=== PATIENT | male | born 1970 | race Caucasian/White ===

== ENCOUNTER 2017-12-18 16:14 | Emergency (ER) | payer OTHER ==
[2017-12-18] MEDS ORDERED: Pantoprazole 40 MG VIAL ONE (16:50)
[2017-12-18] MEDS ORDERED: Promethazine HCl 25 MG/ML VIAL ONE (16:50)
[2017-12-18 17:02] LABS: #Basophils 0.1 thou/uL (0.0-0.2); #Eosinphils 0.1 thou/uL (0.0-0.7); #Lymphocytes 1.5 thou/uL (1.20-3.40); #Monocytes 0.5 thou/uL (0.11-0.59); #Neutrophils 11.5 thou/uL (1.40-6.50); %Basophils 0.7 % (0.0-1.0); %Eosinophils 0.5 % (0.0-10.0); %Monocytes 3.7 % (0.0-10.0); %Neutrophils 84.1 % (42.0-75.0); Hemoglobin 16.3 g/dL (14.0-18.0); Mean Corpuscular HGB CONC 36.4 g/dL (32.0-36.0); Mean Corpuscular Hemoglobin 29.3 pg (27.0-31.0); Mean Corpuscular Volume 80.5 fL (78.0-98.0); Mean Platelet Volume 6.1 fL (7.4-10.4); Platelet Count 261 thou/uL (130-400); RBC Distribution Width 10.4 % (11.5-14.5); Red Blood Cell (RBC) Count 5.57 mill/uL (4.70-6.10); White Blood Cell (WBC) Count 13.7 thou/uL (4.8-10.8)
[2017-12-18 17:08] LABS: CO2 Tension (PvCO2) 47.7 mmHg (41.0-51.0); O2 Tension (PvO2) 33.7 mmHg (35.0-45.0); pH (Venous) 7.353 (7.35-7.45)
[2017-12-18 17:09] LABS: Base Excess-Venous 0.2 mmol/L (0 (+/- 2.5)); Bicarbonate (HCO3v) 26.5 mmol/L (1.0-85.0); Calcium, Ionized 1.07 mmol/L (1.12-1.32); Hemoglobin - Calc 16.9 g/dL (12.0-18.0); Potassium 3.7 mmol/L (3.4-4.7); vO2 Saturation-calc 61.2 % (94-98)
[2017-12-18 17:21] LABS: ALT (SGPT) 24 U/L (8-55); AST (SGOT) 17 U/L (5-34); Albumin 4.5 g/dL (3.5-5.0); Alkaline Phosphatase 61 U/L (40-150); Anion Gap 19 mmol/L (10-20); BUN (Urea Nitrogen) 12 mg/dL (8.9-20.6); Bilirubin, Total 0.7 mg/dL (0.2-1.2); Calc. Creatinine Clearance 0 mL/min (70-130); Calcium 10.1 mg/dL (7.8-10.44); Carbon Dioxide 25 mmol/L (22-29); Chloride 101 mmol/L (98-107); Estimated GFR-MDRD 87; Globulin 2.8 g/dL (2.4-3.5); Glucose 246 mg/dL (70-105); Lipase 26 U/L (8-78); Potassium 3.9 mmol/L (3.5-5.1); Protein, Total 7.3 g/dL (6.0-8.3); Sodium 141 mmol/L (136-145)
[2017-12-18] MEDS ORDERED: diphenhydrAMINE 50 MG/ML VIAL ONE (18:02)
[2017-12-18] MEDS ORDERED: Metoclopramide HCl 10 MG/2 ML VIAL ONE (18:02)
[2017-12-18 18:46] LABS: Clarity Clear (Clear)
[2017-12-18 18:48] LABS: Bilirubin Negative (Negative); Blood, Urine Negative (Negative); Glucose, Urine (Dipstick) 500 mg/dL (Negative); Leukocyte Negative (Negative); Nitrite Negative (Negative); Protein, Urine (Dipstick) Negative (Neg-Trace); Urobilinogen 0.2 mg/dL (0.2-1.0); pH, Urine 5.5 (5.0-9.0)
--- NOTE | 2017-12-18 18:59 | CT ---
CT ABDOMEN AND PELVIS WITH CONTRAST 12/18/[address] of the abdomen and pelvis was performed for evaluation of nausea and vomiting. Axial slices were acquired after giving IV contrast. Coronal and sagittal reconstructions were done afterwards. The lung bases are clear. There is a small hiatal hernia. There might be some slight thickening of th e distal esophagus, but this is difficult to be sure of. The stomach itself did not appear distended or have abnormally thick harrison. The liver and spleen were unremarkable. The gallbladder is rather lar ge, measuring 9.1 cm in length, but no definite calcifications were seen within it. The adrenal gland s appeared normal as do the kidneys, but there is a tiny nonobstructing calculus in the right kidney. No ureteral calculi were seen. The abdominal aorta was unremarkable. The bowel showed no sign of distention or bowel wall thickening. No inflammatory changes were seen ar ound bowel. The appendix appears normal. There is no free air or free fluid visible. CT of the pelvis showed no pelvic masses, fluid collections, or inflammatory changes. IMPRESSION: 1. No specific gut abnormality seen. 2. Small hiatal hernia. 3. Gallbladder is somewhat large but no stones were appreciated. 4. Tiny nonobstructing right renal calculus. POS: HOME
[2017-12-18] MEDS ORDERED: Morphine 4 MG/ML Carpuject ONE (19:12)
== END 2017-12-18 20:13 | disposition home or self-care (01) ==
LOC: BURERS 16:14
DX: E11.9 Type 2 diabetes mellitus without complications (principal); R11.2 Nausea with vomiting, unspecified; I10 Essential (primary) hypertension; Z79.84 Long term (current) use of oral hypoglycemic drugs; Z79.899 Other long term (current) drug therapy
CPT/HCPCS: 36416; 74177; 80053; 81003; 82330; 82803; 83690; 85025; 93005; 96361; 96365; 96375; C9113; J1200; J2270; J2550; J2765

== ENCOUNTER 2017-12-25 12:12 | Emergency (ER) | payer OTHER ==
[2017-12-25] MEDS ORDERED: Promethazine HCl 25 MG/ML VIAL ONE (12:40)
[2017-12-25] MEDS ORDERED: Famotidine In NaCl 20 mg/50 ml Premix Bag ONE (12:40)
[2017-12-25 12:54] LABS: #Monocytes 0.4 thou/uL (0.11-0.59); #Neutrophils 5.4 thou/uL (1.40-6.50); %Basophils 0.5 % (0.0-1.0); %Eosinophils 0.2 % (0.0-10.0); %Lymphocytes 14.5 % (21.0-51.0); %Monocytes 5.7 % (0.0-10.0); Hemoglobin 17.9 g/dL (14.0-18.0); Mean Corpuscular HGB CONC 34.4 g/dL (32.0-36.0); Mean Corpuscular Hemoglobin 30.3 pg (27.0-31.0); Mean Corpuscular Volume 88.3 fL (78.0-98.0); Mean Platelet Volume 7.9 fL (7.4-10.4); Platelet Count 265 thou/uL (130-400); RBC Distribution Width 10.8 % (11.5-14.5); Red Blood Cell (RBC) Count 5.89 mill/uL (4.70-6.10); White Blood Cell (WBC) Count 6.8 thou/uL (4.8-10.8)
[2017-12-25 13:07] LABS: pH (Venous) 7.377 (7.35-7.45)
[2017-12-25 13:08] LABS: Base Excess-Venous 0.2 mmol/L (0 (+/- 2.5)); Bicarbonate (HCO3v) 25.9 mmol/L (1.0-85.0); CO2 Tension (PvCO2) 44.1 mmHg (41.0-51.0); O2 Tension (PvO2) 30.9 mmHg (35.0-45.0); vO2 Saturation-calc 57.5 % (94-98)
[2017-12-25 13:09] LABS: ALT (SGPT) 21 U/L (8-55); AST (SGOT) 13 U/L (5-34); Albumin 4.5 g/dL (3.5-5.0); Alkaline Phosphatase 68 U/L (40-150); Anion Gap 19 mmol/L (10-20); BUN (Urea Nitrogen) 13 mg/dL (8.9-20.6); Calc. Creatinine Clearance 0 mL/min (70-130); Calcium 9.9 mg/dL (7.8-10.44); Carbon Dioxide 27 mmol/L (22-29); Chloride 95 mmol/L (98-107); Estimated GFR-MDRD Greater than 90; Globulin 2.9 g/dL (2.4-3.5); Glucose 226 mg/dL (70-105); Hemoglobin - Calc 18.9 g/dL (12.0-18.0); Lipase 23 U/L (8-78); Potassium 3.6 mmol/L (3.5-5.1); Protein, Total 7.4 g/dL (6.0-8.3); Sodium 137 mmol/L (136-145)
[2017-12-25 13:10] LABS: CKMB 0.8 ng/mL (0-6.6); Troponin I Less than 0.010 ng/mL (< 0.028)
[2017-12-25] MEDS ORDERED: Ondansetron HCl/PF 4 MG/2 ML Vial ONE ×2 (13:21→15:39)
[2017-12-25 14:36] LABS: Bilirubin Negative (Negative); Blood, Urine Negative (Negative); Clarity Clear (Clear); Glucose, Urine (Dipstick) 500 mg/dL (Negative); Leukocyte Negative (Negative); Nitrite Negative (Negative); Protein, Urine (Dipstick) Negative (Neg-Trace); Urobilinogen 0.2 mg/dL (0.2-1.0); pH, Urine 5.5 (5.0-9.0)
== END 2017-12-25 19:05 | disposition home or self-care (01) ==
LOC: BURERS 12:12
DX: E72.51 Non-ketotic hyperglycinemia (principal); I10 Essential (primary) hypertension; E11.9 Type 2 diabetes mellitus without complications; Z79.899 Other long term (current) drug therapy; Z79.4 Long term (current) use of insulin
CPT/HCPCS: 80053; 81003; 82330; 82553; 82803; 83605; 83690; 84484; 85025; 93005; 94760; 96361; 96365; 96375; 96376; J2405; J2550

== ENCOUNTER 2018-02-02 09:42 | Emergency (ER) | payer OTHER ==
[2018-02-02] MEDS ORDERED: Ondansetron HCl/PF 4 MG/2 ML Vial ONE (10:38)
[2018-02-02 10:41] LABS: #Basophils 0.1 thou/uL (0.0-0.2); #Eosinphils 0.1 thou/uL (0.0-0.7); #Lymphocytes 1.4 thou/uL (1.20-3.40); #Monocytes 0.8 thou/uL (0.11-0.59); #Neutrophils 6.2 thou/uL (1.40-6.50); %Basophils 1.4 % (0.0-1.0); %Eosinophils 0.9 % (0.0-10.0); %Lymphocytes 16.5 % (21.0-51.0); %Monocytes 9.1 % (0.0-10.0); %Neutrophils 72.1 % (42.0-75.0); Hemoglobin 16.7 g/dL (14.0-18.0); Mean Corpuscular HGB CONC 34.1 g/dL (32.0-36.0); Mean Corpuscular Hemoglobin 29.6 pg (27.0-31.0); Mean Corpuscular Volume 86.6 fL (78.0-98.0); Mean Platelet Volume 7.1 fL (7.4-10.4); Platelet Count 465 thou/uL (130-400); RBC Distribution Width 11.7 % (11.5-14.5); Red Blood Cell (RBC) Count 5.66 mill/uL (4.70-6.10); White Blood Cell (WBC) Count 8.7 thou/uL (4.8-10.8)
[2018-02-02 10:54] LABS: ALT (SGPT) 16 U/L (8-55); AST (SGOT) 9 U/L (5-34); Albumin 4.3 g/dL (3.5-5.0); Alkaline Phosphatase 88 U/L (40-150); Anion Gap 16 mmol/L (10-20); BUN (Urea Nitrogen) 20 mg/dL (8.9-20.6); Bilirubin, Total 1.3 mg/dL (0.2-1.2); Calc. Creatinine Clearance 0 mL/min (70-130); Calcium 9.8 mg/dL (7.8-10.44); Carbon Dioxide 25 mmol/L (22-29); Chloride 94 mmol/L (98-107); Estimated GFR-MDRD 78; Globulin 2.9 g/dL (2.4-3.5); Glucose 232 mg/dL (70-105); Lipase 31 U/L (8-78); Potassium 3.8 mmol/L (3.5-5.1); Protein, Total 7.2 g/dL (6.0-8.3); Sodium 131 mmol/L (136-145)
[2018-02-02 10:55] LABS: CKMB 0.7 ng/mL (0-6.6); Troponin I Less than 0.010 ng/mL (< 0.028)
[2018-02-02] MEDS ORDERED: Prochlorperazine 10 MG/2 ML VIAL ONE (11:08)
[2018-02-02] MEDS ORDERED: Ketorolac Tromethamine 30 MG/ML VIAL ONE (11:08)
[2018-02-02 12:12] LABS: Bilirubin Negative (Negative); Blood, Urine Negative (Negative); Clarity Clear (Clear); Glucose, Urine (Dipstick) 500 mg/dL (Negative); Leukocyte Negative (Negative); Nitrite Negative (Negative); Protein, Urine (Dipstick) Negative (Neg-Trace); pH, Urine 5.5 (5.0-9.0)
[2018-02-02 12:16] LABS: Specific Gravity, Urine 1.033 (1.005-1.030)
--- NOTE | 2018-02-02 13:18 | CT ---
CT ABDOMEN AND PELVIS PERFORMED WITH CONTRAST ENHANCEMENT: HISTORY: A 6-day history of abdominal pain. COMPARISON: 12/18/2017 FINDINGS: ABDOMEN: The lung bases are clear. The liver and spleen are within normal limits in size. No focal lesions. The pancreas shows no mass or ductal dilatation. The gallbladder is mildly distended, but no pericholecystic inflammatory type change seen. The right and left adrenal glands are normal in appearance. A punctate, nonobstructing right renal c alculus is incidentally noted. There is no significant periaortic or mesenteric lymphadenopathy seen . PELVIS: A tiny, fat-containing paraumbilical hernia is seen. The appendix is unremarkable. There i s no significant pelvic lymphadenopathy. No mass or fluid collection. IMPRESSION: 1. Small hiatal hernia. 2. Mild gallbladder distention, similar to the prior examination. 3. Punctate, nonobstructing right renal calculus. POS: [facility]
== END 2018-02-02 13:00 | disposition home or self-care (01) ==
LOC: BURERS 09:42
DX: R10.32 Left lower quadrant pain (principal); I10 Essential (primary) hypertension; E11.43 Type 2 diabetes mellitus with diabetic autonomic (poly)neuropathy; K31.84 Gastroparesis; Z79.899 Other long term (current) drug therapy; Z79.84 Long term (current) use of oral hypoglycemic drugs
CPT/HCPCS: 74177; 80053; 81003; 82553; 83690; 84484; 85025; 93005; 96361; 96374; 96375; J0780; J1885; J2405

== ENCOUNTER 2018-04-30 12:32 | Emergency (ER) | payer OTHER ==
[2018-04-30 13:05] LABS: #Basophils 0.1 thou/uL (0.0-0.2); #Eosinphils 0.1 thou/uL (0.0-0.7); #Lymphocytes 2.6 thou/uL (1.20-3.40); #Monocytes 1.2 thou/uL (0.11-0.59); #Neutrophils 9.8 thou/uL (1.40-6.50); %Eosinophils 0.7 % (0.0-10.0); %Monocytes 8.4 % (0.0-10.0); Hemoglobin 15.4 g/dL (14.0-18.0); Mean Corpuscular HGB CONC 35.3 g/dL (32.0-36.0); Mean Corpuscular Hemoglobin 31.9 pg (27.0-31.0); Mean Corpuscular Volume 90.4 fL (78.0-98.0); Mean Platelet Volume 6.5 fL (7.4-10.4); Platelet Count 342 thou/uL (130-400); RBC Distribution Width 12.6 % (11.5-14.5); Red Blood Cell (RBC) Count 4.83 mill/uL (4.70-6.10); White Blood Cell (WBC) Count 13.8 thou/uL (4.8-10.8)
[2018-04-30] MEDS ORDERED: diphenhydrAMINE 50 MG/ML VIAL ONE (13:08)
[2018-04-30] MEDS ORDERED: Famotidine In NaCl 20 mg/50 ml Premix Bag ONE (13:08)
[2018-04-30] MEDS ORDERED: Prochlorperazine 10 MG/2 ML VIAL ONE (13:08)
[2018-04-30 13:21] LABS: ALT (SGPT) 15 U/L (8-55); AST (SGOT) 10 U/L (5-34); Albumin 4.4 g/dL (3.5-5.0); Alkaline Phosphatase 93 U/L (40-150); Anion Gap 20 mmol/L (10-20); BUN (Urea Nitrogen) 22 mg/dL (8.9-20.6); Calc. Creatinine Clearance 0 mL/min (70-130); Calcium 9.7 mg/dL (7.8-10.44); Carbon Dioxide 25 mmol/L (22-29); Chloride 91 mmol/L (98-107); Estimated GFR-MDRD 54; Globulin 2.9 g/dL (2.4-3.5); Glucose 288 mg/dL (70-105); Lipase 141 U/L (8-78); Potassium 3.6 mmol/L (3.5-5.1); Protein, Total 7.3 g/dL (6.0-8.3); Sodium 132 mmol/L (136-145)
[2018-04-30 14:41] LABS: Bilirubin Negative (Negative); Blood, Urine Negative (Negative); Clarity Clear (Clear); Glucose, Urine (Dipstick) 500 mg/dL (Negative); Leukocyte Negative (Negative); Nitrite Negative (Negative); Protein, Urine (Dipstick) 30 mg/dL (Neg-Trace); Urobilinogen 0.2 mg/dL (0.2-1.0); pH, Urine 6.5 (5.0-9.0)
[2018-04-30 14:42] LABS: Bacteria/HPF Rare-Few HPF (None Seen); RBC/HPF None Seen HPF (0-3); Squamous Epithelial 0-3 HPF (0-3); WBC/HPF 0-3 HPF (0-3)
== END 2018-04-30 14:55 | disposition home or self-care (01) ==
LOC: BURERS 12:32
DX: E86.0 Dehydration (principal); R11.2 Nausea with vomiting, unspecified; E11.43 Type 2 diabetes mellitus with diabetic autonomic (poly)neuropathy; K31.84 Gastroparesis; I10 Essential (primary) hypertension; Z79.84 Long term (current) use of oral hypoglycemic drugs; Z79.899 Other long term (current) drug therapy
CPT/HCPCS: 80053; 81003; 81015; 83690; 85025; 96361; 96365; 96375; J0780; J1200

== ENCOUNTER 2018-05-31 15:32 | Emergency (ER) | payer OTHER, SELFPAY ==
[2018-05-31] MEDS ORDERED: Pantoprazole 40 MG VIAL ONE (16:09)
[2018-05-31] MEDS ORDERED: Prochlorperazine 10 MG/2 ML VIAL ONE (16:09)
[2018-05-31 16:10] LABS: #Basophils 0.1 thou/uL (0.0-0.2); #Lymphocytes 1.6 thou/uL (1.20-3.40); #Monocytes 0.8 thou/uL (0.11-0.59); #Neutrophils 5.9 thou/uL (1.40-6.50); %Basophils 1.1 % (0.0-1.0); %Eosinophils 0.6 % (0.0-10.0); %Lymphocytes 19.3 % (21.0-51.0); %Monocytes 9.2 % (0.0-10.0); %Neutrophils 69.8 % (42.0-75.0); Hemoglobin 14.6 g/dL (14.0-18.0); Mean Corpuscular HGB CONC 35.8 g/dL (32.0-36.0); Mean Corpuscular Hemoglobin 32.4 pg (27.0-31.0); Mean Corpuscular Volume 90.5 fL (78.0-98.0); Mean Platelet Volume 6.2 fL (7.4-10.4); Platelet Count 307 thou/uL (130-400); RBC Distribution Width 11.9 % (11.5-14.5); Red Blood Cell (RBC) Count 4.52 mill/uL (4.70-6.10); White Blood Cell (WBC) Count 8.4 thou/uL (4.8-10.8)
[2018-05-31 16:25] LABS: ALT (SGPT) 17 U/L (8-55); AST (SGOT) 14 U/L (5-34); Albumin 4.3 g/dL (3.5-5.0); Alkaline Phosphatase 90 U/L (40-150); Anion Gap 18 mmol/L (10-20); BUN (Urea Nitrogen) 21 mg/dL (8.9-20.6); Calc. Creatinine Clearance 0 mL/min (70-130); Calcium 9.9 mg/dL (7.8-10.44); Carbon Dioxide 24 mmol/L (22-29); Chloride 93 mmol/L (98-107); Estimated GFR-MDRD 75; Globulin 2.9 g/dL (2.4-3.5); Glucose 314 mg/dL (70-105); Lipase 27 U/L (8-78); Potassium 4.1 mmol/L (3.5-5.1); Protein, Total 7.2 g/dL (6.0-8.3); Sodium 131 mmol/L (136-145)
[2018-05-31] MEDS ORDERED: Ondansetron PF 4 MG/2 ML Vial ONE (18:15)
== END 2018-05-31 19:35 | disposition home or self-care (01) ==
LOC: BURERS 15:32
DX: E11.43 Type 2 diabetes mellitus with diabetic autonomic (poly)neuropathy (principal); K31.84 Gastroparesis; R11.2 Nausea with vomiting, unspecified; Z79.84 Long term (current) use of oral hypoglycemic drugs; Z79.899 Other long term (current) drug therapy
CPT/HCPCS: 80053; 83690; 85025; 96361; 96374; 96375; C9113; J0780; J2405